=== PATIENT | female | born 1960 | race Caucasian/White ===

== ENCOUNTER 2024-07-22 09:20 | Emergency (ER) | payer OTHER, SELFPAY ==
[2024-07-22 09:21] VITALS: BMI 29.0
[2024-07-22 09:32] VITALS: BP 145/80; PULSE 84; RESP 18; TEMP 36.7; O2SAT 97; BMI 29.2
--- NOTE | 2024-07-22 09:35 | XR_ITS ---
Examination: Hand, left 3 views Technique: Hand AP, oblique, lateral 3 views Date and time of exam: July 22, 2024 0959 hrs. Indications: Injury to the hand yesterday, hand pain Findings: No acute fracture No dislocation No foreign body Impression: No acute fracture
--- NOTE | 2024-07-22 09:35 | XR_ITS ---
Examination: Wrist, left 3 views Technique: Wrist AP, oblique, lateral 3 views Date and time of exam: April 21, 2025 1001 hrs. Indications: Injury to the wrist last night, wrist pain Findings: No fracture or dislocation No foreign body Impression: No fracture or dislocation
--- NOTE | 2024-07-22 09:36 | PD.EDHAND ---
Upper Extremity Injury RME/HPI General Chief Complaint: Hand/Wrist Problems Stated Complaint: LEFT WRIST INJURY S/P FALL LAST NIGHT Time Seen by Provider: 07/22/24 09:22 Source: patient Arrival date/time: 07/22/24 09:20 64-year-old female with no known medical history presents to the emergency room with a chief complaint of tenderness to the left wrist and left hand after a fall that occurred last night in her bathtub. Mode of arrival: ambulatory Limitations: no limitations Related Data Previous Rx's ?Medication ?Instructions ?Recorded ibuprofen 600 mg tablet 600 mg PO Q8H PRN fever or pain 07/22/24 #20 tabs Allergies Allergy/AdvReac Type Severity Reaction Status Date / Time wheat Allergy Severe Diarrhea Verified 07/22/24 09:24 grass pollen Allergy Mild Watery Eye Verified 07/22/24 09:24 Review of Systems Review of Systems Systems Reviewed: All systems reviewed, normal except as documented Constitutional Constitutional: Reports system reviewed and no additional complaints, except as documented, Denies fatigue, Denies fever(s), Denies headache(s) and Denies weakness Eyes Eyes: Reports system reviewed and no additional complaints, except as documented, Denies blurry vision and Denies change in vision ENT Ears, Nose, Mouth, and Throat: Reports system reviewed and no additional complaints, except as documented, Denies otalgia, Denies headache(s), Denies nasal congestion, Denies throat swelling and Denies vertigo Cardiovascular Cardiovascular: Reports system reviewed and no additional complaints, except as documented, Denies chest pain, Denies dyspnea and Denies dyspnea on exertion Respiratory Respiratory: Reports system reviewed and no additional complaints, except as documented, Denies chest congestion, Denies cough, Denies dyspnea, Denies dyspnea on exertion and Denies wheezing Gastrointestinal Gastrointestinal: Reports system reviewed and no additional complaints, except as documented, Denies abdominal pain, Denies cramping, Denies nausea and Denies vomiting Genitourinary Genitourinary: Reports system reviewed and no additional complaints, except as documented Musculoskeletal Musculoskeletal: Reports system reviewed and no additional complaints, except as documented, Reports arthralgias, Denies back pain, Denies deformity, Reports joint swelling, Reports limited range of motion, Denies numbness, Denies stiffness and Denies tingling Integumentary/Breasts Skin/Breast: Reports system reviewed and no additional complaints, except as documented and Denies wounds Neurologic Neurologic: Reports system reviewed and no additional complaints, except as documented, Denies confusion, Denies headache(s), Denies lack of coordination, Denies numbness, Denies tingling, Denies vertigo and Denies weakness Psychiatric Psychiatric: Reports system reviewed and no additional complaints, except as documented, Denies anxiety, Denies confusion, Denies depression, Denies paranoia, Denies suicidal ideation and Denies tactile hallucinations Endocrine Endocrine: Reports system reviewed and no additional complaints, except as documented and Denies fatigue Hematologic/Lymphatic Hematologic/Lymphatic: Reports system reviewed and no additional complaints, except as documented and Denies lymphadenopathy Allergic/Immunologic Allergic/Immunologic: Reports system reviewed and no additional complaints, except as documented, Denies throat swelling, Denies urticaria and Denies wheezing Past Medical History Social History SMOKING STATUS: Never smoker ED Exam General Limitations: Present no limitations General appearance: Present alert and in no apparent distress Head Head exam: Present atraumatic Eye Eye exam: Present normal appearance, PERRL and EOMI ENT ENT exam: Present normal exam, normal oropharynx and mucous membranes moist Neck Neck exam: Present normal inspection, full ROM and trachea midline Chest Chest inspection: Present normal inspection and symmetric chest wall rise Respiratory Respiratory exam: Present normal lung sounds bilaterally Cardiovascular Cardiovascular exam: Present regular rate, normal rhythm and normal heart sounds Abdominal Exam Abdominal exam: Present soft and normal bowel sounds Extremities Exam Extremities exam: Present normal inspection and full ROM Expanded Upper Extremity Exam Shoulder exam: Present normal inspection Arm exam: Present normal inspection Elbow exam: Present normal inspection Forearm/Wrist exam: Present tenderness and swelling; Absent full ROM Hand exam: Present tenderness and swelling Vascular exam: Normal capillary refill Back Exam Back exam: Present normal inspection and full ROM Neurological Exam Neurological exam: Present alert, oriented X3 and CN II-XII intact Psychiatric Psychiatric exam: Present normal affect and normal mood Skin Skin exam: Present warm, dry, intact and normal color Course Quality Measures none Orders Category Date Time Status shakir wrap [Splint / Immobilizer] STAT Care 07/22/24 09:35 Completed XR hand comp LT min 3V Stat Exams 07/22/24 09:35 Completed XR wrist comp LT min 3V Stat Exams 07/22/24 09:35 Completed Vital Signs Vital signs: Vital Signs Temperature 98.1 F 07/22/24 09:32 Pulse Rate 84 07/22/24 09:32 Respiratory Rate 18 07/22/24 09:32 Blood Pressure 145/80 H 07/22/24 09:32 Pulse Oximetry (%) 97 07/22/24 09:32 Oxygen Delivery Method Room Air 07/22/24 09:32 O2 saturation 97% within normal limits Extremity Injury MDM Narrative MDM Narrative:: 64-year-old female with no known medical history presents to the emergency room with a chief complaint of tenderness to the left wrist and left hand after a fall that occurred last night in her bathtub. Patient is hemodynamically stable and in no apparent distress Physical examination shows tenderness and pain with palpation to the left wrist and the left hand. There is no erythema or any signs of infection. There is minor swelling to the wrist. The patient has a wrist brace that she has from home. X-ray of the left wrist and left hand were completed and were negative for any acute fractures or dislocations. An Shakir wrap was placed on the patient for comfort patient was discharged and educated to follow-up with primary care provider and return to the emergency room for any evidence of worsening signs or symptoms Patient data External records reviewed:: [facility] previous records Clinical information provided by:: patient Social determinants that could affect healthcare access:: none Patient has the following chronic illnesses:: No chronic illness How is presenting disease/condition affected by chronic disease/condition?: no chronic disease Evaluation data The following diagnostics were reviewed and interpreted by me:: lab results and radiology exam(s) Lab and/or radiology exams considered but not ordered:: Labs and radiology exams considered and ordered Interpretation Summary: Left wrist [id number]: No fracture or dislocation No foreign body Impression: No fracture or dislocation Left hand [id number]: No acute fracture No dislocation No foreign body Impression: No acute fracture Medications / Prescriptions Medications or Prescriptions considered but not ordered:: No medication given Medication administrations:: No medication given Consultations Consultation(s) initiated? (list below): No Diagnosis Upper Extremity Injury Differential Diagnosis: sprain and strain of wrist, fracture of wrist and fracture of hand Most likely diagnosis given after review of the tests above:: Sprain and strain of wrist Admission Indicated Admission indicated?: not indicated Admission Request Was there a request for admission?: No Disposition Plan Disposition Plan: Discharge Discharge Attestation Discharge Attestation: The patient and all family members were given an opportunity to ask questions and understood the discharge instructions. Discharge instructions specifically effects, indications for sooner follow up or return to the emergency department, and the expected course of current diagnosis. Patient condition: Stable Discharge Plan Plan Patient Disposition: HOME (Self Care) Disposition Comment: Stable Prescriptions/Referrals Prescriptions/Med Rec: New ibuprofen 600 mg tablet 600 mg PO Q8H PRN (Reason: fever or pain) Qty: 20 0RF Referrals: No Primary/Family,Physician [Primary Care Provider] - In 1 week Problem List Clinical Impression: Sprain and strain of wrist Patient/Caregiver Discharge Instructions Additional Instructions: Please follow-up with your primary care provider in the next 24 to 48 hours. X-rays of your wrist and your hand were completed and were negative for any acute fractures or dislocations. For any evidence of worsening signs or symptoms return to the emergency room immediately Print Language: Kazakh Stand Alone Forms: Natalya Award Info., Patient Portal Info Letter PA/JAY Supervising Physician PA/JAY Supervising Physician: Dr. Velasco
== END 2024-07-22 11:15 | disposition home or self-care (01) ==
PROVIDERS: Emergency Provider Emergency Medicine
DX: S63.502A Unspecified sprain of left wrist, initial encounter (principal); S66.912A Strain of unspecified muscle, fascia and tendon at wrist and hand level, left hand, initial encounter; W18.2XXA Fall in (into) shower or empty bathtub, initial encounter
CPT/HCPCS: 73110; 73130; 99283